=== PATIENT | male | born 1995 | race Two or more races ===

== ENCOUNTER 2019-08-26 12:40 | Emergency (ER) | payer MEDICAID ==
[~2019-08-26] VITALS: Ht 177.8 cm; Wt 88.6 kg
[2019-08-26 12:50] VITALS: BP 174/95
[2019-08-26] MEDS ORDERED: LIDOcaine 1% W/epiNEPHrine 1:200,000 10ml vial IJ ONE (13:00)
[2019-08-26] MEDS ORDERED: HYDROcodone/acetaminophen 5mg/325mg tablet PO ONE (13:05)
== END 2019-08-26 14:19 | disposition home or self-care (01) ==
LOC: ER 12:41
DX: S63.124A Dislocation of interphalangeal joint of right thumb, initial encounter (principal); W18.39XA Other fall on same level, initial encounter; Y93.72 Activity, wrestling; Y92.89 Other specified places as the place of occurrence of the external cause; Y99.8 Other external cause status
CPT/HCPCS: 26770; 73140; 99284